=== PATIENT | female | born 1975 | race Caucasian/White ===

== ENCOUNTER 2017-01-09 12:05 | Emergency (ER) | payer SELFPAY ==
[~2017-01-09] VITALS: Ht 165.1 cm; Wt 75.0 kg
[2017-01-09 12:27] LABS: GLUCOSE,POINT OF CARE 260 MG/DL (70-110)
[2017-01-09] MEDS ORDERED: INSNOV SQ (12:32)
[2017-01-09] MEDS ORDERED: SIMV5TAB6 PO (12:32)
[2017-01-09] MEDS ORDERED: ASPI81 PO (12:32)
[2017-01-09] MEDS ORDERED: INSLAN SQ (12:32)
[2017-01-09] MEDS ORDERED: GLIP5 PO (12:32)
[2017-01-09 13:25] LABS: BASOPHILS % (AUTO) 0.4 % (0.0-2.0); EOSINOPHILS % (AUTO) 0.7 % (1.0-6.0); HEMATOCRIT 46.1 % (36-46); HEMOGLOBIN 15.3 g/dL (12.0-16.0); LYMPHOCYTES # (AUTO) 1.9 K/uL (1.0-4.8); LYMPHOCYTES % (AUTO) 27.9 % (22.0-44.0); MEAN CORPUSCULAR HEMOGLOBIN 29.8 pg (26.0-34.0); MEAN CORPUSCULAR HGB CONC 33.2 G/dL (31.0-37.0); MEAN CORPUSCULAR VOLUME 90 fL (80-100); MONOCYTES # (AUTO) 0.4 K/uL (0.1-1.0); NEUTROPHILS # (AUTO) 4.4 K/uL (1.8-7.7); PLATELET COUNT (AUTO) 125 K/uL (150-450); RED BLOOD CELL COUNT(AUTO) 5.15 MIL/uL (4.00-5.20); RED CELL DISTRIBUTION WIDTH 13.3 % (11.5-14.5); WHITE BLOOD COUNT (AUTO) 6.7 K/uL (4.5-11.0)
[2017-01-09 13:41] LABS: ANION GAP 12 mmol/L (8-16); CALCIUM, TOTAL 7.8 mg/dL (8.8-10.5); CARBON DIOXIDE 24 mmol/L (22-29); CHLORIDE 100 mmol/L (98-107); CREATININE 0.69 mg/dL (0.60-1.30); GLOMERULAR FILTR. RATE CALC > 60 mL/min (>60); POTASSIUM 3.8 mmol/L (3.5-5.1); SODIUM SERUM 136 mmol/L (136-145); UREA NITROGEN, BLOOD 16 mg/dL (7-18)
[2017-01-09 13:44] LABS: ALANINE AMINOTRANSFERASE 38 U/L (12-78); ALBUMIN 3.4 g/dL (3.4-5.0); ASPARTATE AMINOTRANSFERASE 23 U/L (15-37); BILIRUBIN,TOTAL 1.2 mg/dL (0.1-1.0); TOTAL PROTEIN, SERUM 7.6 g/dL (6.4-8.2)
[2017-01-09] MEDS ORDERED: SODIUM CHLORIDE 0.9% 1,000 ML IV ONE (13:45)
[2017-01-09] MEDS ORDERED: ONDANSETRON HCL 4 MG/2 ML VIAL IVP ONE (13:45)
[2017-01-09] MEDS ORDERED: PANTOPRAZOLE SODIUM 40 MG/VIAL IVP ONE (13:45)
[2017-01-09 13:50] LABS: B-TYPE NATRIURETIC PEPTIDE 7 pg/mL (0-100)
[2017-01-09 13:52] LABS: APPEARANCE,URINE CLEAR (CLEAR); GLUCOSE, URINE (UA) >=1000 mg/dL (NEGATIVE); KETONES,URINE NEGATIVE (NEGATIVE); LEUKOCYTE ESTERASE ,URINE NEGATIVE (NEGATIVE); OCCULT BLOOD,URINE NEGATIVE (NEGATIVE); PROTEIN,URINE NEGATIVE (NEGATIVE)
[2017-01-09 13:54] LABS: ADD UA MICROSCOPIC YES
[2017-01-09 13:56] LABS: RBC,URINE None Seen /HPF (0-2)
[2017-01-09 13:57] LABS: SQUAMOUS EPITHELIAL CELL,UR Moderate /LPF (None Seen); WBC,URINE None Seen /HPF (0-5)
[2017-01-09] MEDS ORDERED: METOCLOPRAMIDE HCL 5 MG/ML 2 ML VIAL IVP ONE (14:15)
[2017-01-09] MEDS ORDERED: MORPHINE SULFATE 4 MG/ML SYRINGE IVP ONE (14:15)
[2017-01-09 15:00] VITALS: BP 122/63
== END 2017-01-09 15:02 | disposition home or self-care (01) ==
LOC: EMS 12:07
DX: K21.9 Gastro-esophageal reflux disease without esophagitis (principal); F12.10 Cannabis abuse, uncomplicated; E11.43 Type 2 diabetes mellitus with diabetic autonomic (poly)neuropathy; K31.84 Gastroparesis; F14.10 Cocaine abuse, uncomplicated; J45.909 Unspecified asthma, uncomplicated; E78.00 Pure hypercholesterolemia, unspecified; Z79.82 Long term (current) use of aspirin; Z79.4 Long term (current) use of insulin; Z88.2 Allergy status to sulfonamides; Z88.6 Allergy status to analgesic agent
CPT/HCPCS: 36415; 71010; 80053; 80307; 81001; 82962; 83880; 84484; 85025; 93005; 96361; 96374; 96375; 99285; C9113; J2270; J2405; J2765

== ENCOUNTER 2017-02-16 14:53 | Emergency (ER) | payer MEDICAID ==
[~2017-02-16] VITALS: Ht 165.1 cm; Wt 85.0 kg
[~2017-02-16 14:53] MED LIST: ASPI81 PO; GLIP5 PO; INSLAN SQ; INSNOV SQ; SIMV5TAB6 PO
[2017-02-16] MEDS ORDERED: PRED10 PO (15:00)
[2017-02-16 15:02] LABS: GLUCOSE,POINT OF CARE 409 MG/DL (70-110)
[2017-02-16] MEDS ORDERED: SODIUM CHLORIDE 0.9% 1,000 ML IV ONE (15:15)
[2017-02-16] MEDS ORDERED: INSULIN REGULAR, HUMAN 100 UNITS/ML IVP ONE (15:15)
[2017-02-16 15:28] LABS: BASOPHILS % (AUTO) 0.5 % (0.0-2.0); EOSINOPHILS % (AUTO) 1.6 % (1.0-6.0); HEMATOCRIT 45.8 % (36-46); HEMOGLOBIN 14.9 g/dL (12.0-16.0); LYMPHOCYTES % (AUTO) 28.2 % (22.0-44.0); MEAN CORPUSCULAR HEMOGLOBIN 29.7 pg (26.0-34.0); MEAN CORPUSCULAR HGB CONC 32.4 G/dL (31.0-37.0); MEAN CORPUSCULAR VOLUME 92 fL (80-100); MONOCYTES # (AUTO) 0.6 K/uL (0.1-1.0); MONOCYTES % (AUTO) 8.3 % (2.0-9.0); NEUTROPHILS # (AUTO) 4.4 K/uL (1.8-7.7); NEUTROPHILS % (AUTO) 61.4 % (40.0-70.0); PLATELET COUNT (AUTO) 124 K/uL (150-450); RED BLOOD CELL COUNT(AUTO) 5.01 MIL/uL (4.00-5.20); RED CELL DISTRIBUTION WIDTH 14.3 % (11.5-14.5); WHITE BLOOD COUNT (AUTO) 7.2 K/uL (4.5-11.0)
[2017-02-16 16:27] LABS: ALANINE AMINOTRANSFERASE 38 U/L (12-78); ALBUMIN 3.3 g/dL (3.4-5.0); ANION GAP 12 mmol/L (8-16); ASPARTATE AMINOTRANSFERASE 17 U/L (15-37); BILIRUBIN,TOTAL 0.5 mg/dL (0.1-1.0); CALCIUM, TOTAL 8.4 mg/dL (8.8-10.5); CARBON DIOXIDE 23 mmol/L (22-29); CHLORIDE 99 mmol/L (98-107); GLOMERULAR FILTR. RATE CALC > 60 mL/min (>60); POTASSIUM 4.1 mmol/L (3.5-5.1); SODIUM SERUM 134 mmol/L (136-145); TOTAL PROTEIN, SERUM 7.3 g/dL (6.4-8.2); UREA NITROGEN, BLOOD 15 mg/dL (7-18)
[2017-02-16 16:31] LABS: APPEARANCE,URINE CLEAR (CLEAR); GLUCOSE, URINE (UA) >=1000 mg/dL (NEGATIVE); KETONES,URINE NEGATIVE (NEGATIVE); LEUKOCYTE ESTERASE ,URINE NEGATIVE (NEGATIVE); OCCULT BLOOD,URINE NEGATIVE (NEGATIVE); PROTEIN,URINE NEGATIVE (NEGATIVE)
[2017-02-16 16:32] LABS: ADD UA MICROSCOPIC YES
[2017-02-16 16:34] LABS: RBC,URINE None Seen /HPF (0-2); SQUAMOUS EPITHELIAL CELL,UR Few /LPF (None Seen); WBC,URINE 0-2 /HPF (0-5)
[2017-02-16 17:27] LABS: GLUCOSE,POINT OF CARE 158 MG/DL (70-110)
[2017-02-16] MEDS ORDERED: POVIDONE-IODINE 10% 15 ML SOLUTION UD TP ONE (17:30)
[2017-02-16] MEDS ORDERED: CefTRIAXone 1 GM/DEXTROSE 50 ML IV ONE (17:30)
[2017-02-16] MEDS ORDERED: LIDOCAINE HCL BUFFERED 1% 20 ML VIAL INJ ONE (17:30)
[2017-02-16] MEDS ORDERED: HYDROCODONE/ACETAMINOPHEN 5-325 MG TABLET PO ONE (18:30)
[2017-02-16 18:58] VITALS: BP 129/77
== END 2017-02-16 19:00 | disposition home or self-care (01) ==
LOC: EMS 14:54
DX: L02.511 Cutaneous abscess of right hand (principal); E11.65 Type 2 diabetes mellitus with hyperglycemia; J45.909 Unspecified asthma, uncomplicated; E78.00 Pure hypercholesterolemia, unspecified; Z91.19 Patient's noncompliance with other medical treatment and regimen; Z79.4 Long term (current) use of insulin; Z79.82 Long term (current) use of aspirin; Z88.6 Allergy status to analgesic agent; Z88.2 Allergy status to sulfonamides
CPT/HCPCS: 10060; 36415; 80053; 81001; 82962; 84703; 85025; 96361; 96365; 96375; 99285; J0696; J1815; J3490; J7030

== ENCOUNTER 2017-05-06 19:34 | Emergency (ER) | payer MEDICAID, OTHER ==
[~2017-05-06] VITALS: Ht 165.1 cm; Wt 90.0 kg
[~2017-05-06 19:34] MED LIST changes: +PRED10 PO
[2017-05-06 19:48] VITALS: BP 118/88
[2017-05-06 20:01] LABS: GLUCOSE,POINT OF CARE 389 MG/DL (70-110)
[2017-05-06] MEDS ORDERED: HYDROCODONE/ACETAMINOPHEN 5-325 MG TABLET PO ONE (22:30)
== END 2017-05-06 23:08 | disposition home or self-care (01) ==
LOC: EMS 19:37
DX: S46.912A Strain of unspecified muscle, fascia and tendon at shoulder and upper arm level, left arm, initial encounter (principal); E11.9 Type 2 diabetes mellitus without complications; E78.00 Pure hypercholesterolemia, unspecified; J45.909 Unspecified asthma, uncomplicated; Z79.4 Long term (current) use of insulin; Z88.8 Allergy status to other drugs, medicaments and biological substances; Z88.1 Allergy status to other antibiotic agents; W01.0XXA Fall on same level from slipping, tripping and stumbling without subsequent striking against object, initial encounter; Y93.89 Activity, other specified; Y92.89 Other specified places as the place of occurrence of the external cause; Y99.8 Other external cause status
CPT/HCPCS: 29240; 82962; 99284

== ENCOUNTER 2023-05-30 17:54 | Emergency (ER) | payer OTHER ==
[~2023-05-30] VITALS: Ht 165.1 cm; Wt 68.2 kg
[~2023-05-30 17:54] MED LIST changes: +ASPI-1450 PO; -ASPI81 PO; -GLIP5 PO; +GLIP5TAB12 PO; -PRED10 PO; +SIMV5TAB59 PO; -SIMV5TAB6 PO
[2023-05-30 19:50] VITALS: TEMP 98.9
[2023-05-30 20:56] LABS: BASOPHILS % (AUTO) 0.4 % (0.0-2.0); EOSINOPHILS % (AUTO) 1.5 % (1.0-6.0); HEMATOCRIT 30.7 % (36-46); HEMOGLOBIN 9.2 g/dL (12.0-16.0); LYMPHOCYTES # (AUTO) 1.8 K/uL (1.0-4.8); LYMPHOCYTES % (AUTO) 23.7 % (22.0-44.0); MEAN CORPUSCULAR HEMOGLOBIN 19.7 pg (26.0-34.0); MEAN CORPUSCULAR VOLUME 66 fL (80-100); MONOCYTES # (AUTO) 0.6 K/uL (0.1-1.0); MONOCYTES % (AUTO) 8.3 % (2.0-9.0); NEUTROPHILS # (AUTO) 5.1 K/uL (1.8-7.7); NEUTROPHILS % (AUTO) 66.1 % (40.0-70.0); PLATELET COUNT (AUTO) 196 K/uL (150-450); RED BLOOD CELL COUNT(AUTO) 4.66 MIL/uL (4.00-5.20); RED CELL DISTRIBUTION WIDTH 17.6 % (11.5-14.5)
[2023-05-30 21:17] LABS: APPEARANCE,URINE CLEAR (CLEAR); BILIRUBIN,URINE NEGATIVE (NEGATIVE); GLUCOSE, URINE (UA) TRACE mg/dL (NEGATIVE); KETONES,URINE NEGATIVE (NEGATIVE); LEUKOCYTE ESTERASE ,URINE NEGATIVE (NEGATIVE); NITRATE,URINE NEGATIVE (NEGATIVE); OCCULT BLOOD,URINE NEGATIVE (NEGATIVE); PH,URINE 7.5 (5.0-8.0); PROTEIN,URINE NEGATIVE (NEGATIVE); SPECIFIC GRAVITIY, URINE 1.006 (1.003-1.030); UROBILINOGEN,URINE <=1.0 mg/dL (<=1.0)
[2023-05-30 21:23] LABS: ANION GAP 8 mmol/L (8-16); CALCIUM, TOTAL 8.6 mg/dL (8.8-10.5); CARBON DIOXIDE 30 mmol/L (22-29); CHLORIDE 101 mmol/L (98-107); GLOMERULAR FILTR. RATE CALC > 60 mL/min (>60); GLUCOSE,RANDOM 144 mg/dL (70-110); SODIUM SERUM 139 mmol/L (136-145)
[2023-05-30 21:34] LABS: ALANINE AMINOTRANSFERASE 17 U/L (12-78); ALBUMIN 2.8 g/dL (3.4-5.0); ALKALINE PHOSPHATASE 95 U/L (46-116); ASPARTATE AMINOTRANSFERASE 11 U/L (15-37); BILIRUBIN,TOTAL 0.3 mg/dL (0.1-1.0); HCG,QUANTITATIVE < 1 mIU/mL (0-6); LIPASE 31 U/L (16-77)
[2023-05-30] MEDS ORDERED: ONDANSETRON HCL 4 MG/2 ML VIAL IVP ONE (22:30)
[2023-05-30] MEDS ORDERED: SODIUM CHLORIDE 0.9% 1,000 ML IV ONE (22:30)
[2023-05-30] MEDS ORDERED: FentaNYL CITRATE PF 100 MCG/2 ML VIAL IVP ONE (22:30)
[2023-05-31] MEDS ORDERED: DOCUSATE SODIUM 100 MG CAPSULE PO ONE (05:45)
[2023-05-31 06:57] VITALS: BP 122/54; PULSE 70; RESP 15
== END 2023-05-31 07:20 | disposition home or self-care (01) ==
LOC: EMS 17:54
DX: R10.31 Right lower quadrant pain (principal); K59.00 Constipation, unspecified; J45.909 Unspecified asthma, uncomplicated; E11.9 Type 2 diabetes mellitus without complications; E78.00 Pure hypercholesterolemia, unspecified; F15.90 Other stimulant use, unspecified, uncomplicated; Z88.2 Allergy status to sulfonamides; Z88.8 Allergy status to other drugs, medicaments and biological substances
CPT/HCPCS: 99285; 74176; 96374; 96361; 96375; 80053; 81003; 83690; 84702; 85025; 36415; J3010; J2405; J7030

== ENCOUNTER 2025-05-18 17:56 | Inpatient (IN) | payer MEDICAID, OTHER ==
[~2025-05-18] VITALS: Ht 165.1 cm; Wt 72.6 kg
[~2025-05-18 17:56] MED LIST changes: -GLIP5TAB12 PO; +GLIP5TAB16 PO
[2025-05-18] MEDS ORDERED: ZOLPIDEM TARTRATE 10 MG TABLET PO PRN (19:00)
[2025-05-18 22:28] VITALS: BP 111/81; PULSE 81; RESP 17; TEMP 97.3; O2SAT 98
[2025-05-18] MEDS: PNEUMOCOCCAL VACCINE POLYVALENT 0.5 ML SYRINGE [PPSV23] IM. ONE (23:45)
[2025-05-19 07:15] LABS: GLUCOMETER DEV NAME(LOC) BV3N.2; GLUCOSE,POINT OF CARE 163 MG/DL (70-110)
[2025-05-19 08:13] VITALS: BP 115/75; PULSE 85; RESP 16; TEMP 97.9; O2SAT 99
[2025-05-19 08:16] LABS: PLATELET COUNT (AUTO) 166 K/uL (150-450); RED BLOOD CELL COUNT(AUTO) 5.52 MIL/uL (4.00-5.20); RED CELL DISTRIBUTION WIDTH 17.5 % (11.5-14.5); WHITE BLOOD COUNT (AUTO) 7.1 K/uL (4.5-11.0)
[2025-05-19 08:40] LABS: ASPARTATE AMINOTRANSFERASE 19 U/L (15-37); CALCIUM, TOTAL 8.3 mg/dL (8.8-10.5); CHOL/HDL RATIO 3.0 (3.9-5.7); CREATININE 0.52 mg/dL (0.60-1.30); GLOMERULAR FILTR. RATE CALC > 60 mL/min (>60); GLUCOSE,RANDOM 158 mg/dL (70-110); HCG,QUANTITATIVE 2 mIU/mL (0-6); LDL CHOL (CALC.) 77 mg/dL (0-130); SODIUM SERUM 139 mmol/L (136-145); TOTAL PROTEIN, SERUM 7.3 g/dL (6.4-8.2); UREA NITROGEN, BLOOD 11 mg/dL (7-18)
[2025-05-19] MEDS ORDERED: ALBUTEROL SULFATE HFA 90 MCG/PUFF 8 GM INHALER IH PRN (09:30)
[2025-05-19] MEDS ORDERED: ONDANSETRON 4 MG TABLET PO PRN (09:30)
[2025-05-19] MEDS ORDERED: DOCUSATE SODIUM 100 MG CAPSULE PO PRN (09:30)
[2025-05-19] MEDS ORDERED: NICOTINE 14 MG/24 HOUR PATCH TD PRN (09:30)
[2025-05-19] MEDS ORDERED: GuaiFENesin/D-METHORPHAN [SUGAR-FREE] 200-20MG/10 ML SYRUP UDCUP PO PRN (09:30)
[2025-05-19] MEDS ORDERED: PETROLATUM,WHITE 28 GM JELLY TP PRN (09:30)
[2025-05-19] MEDS ORDERED: LOPERAMIDE HCL 2 MG CAPSULE PO PRN (09:30)
[2025-05-19] MEDS ORDERED: DEXTROSE 50%-WATER 25 GM/50 ML SYRINGE IVP PRN (09:30)
[2025-05-19 09:33] LABS: RBC MORPHOLOGY COMMENT ABNORMAL RBC MORPH
[2025-05-19 11:20] LABS: GLUCOMETER DEV NAME(LOC) BV3N.2; GLUCOSE,POINT OF CARE 207 MG/DL (70-110)
[2025-05-19] MEDS: INSULIN LISPRO 100 UNITS/ML SQ PRN (11:48)
[2025-05-19 11:56] VITALS: RESP 16
[2025-05-19] MEDS: IBUPROFEN 400 MG TABLET PO PRN (11:56)
[2025-05-19 12:56] VITALS: RESP 18
[2025-05-19 17:26] LABS: GLUCOMETER DEV NAME(LOC) BV3N.2; GLUCOSE,POINT OF CARE 190 MG/DL (70-110)
[2025-05-19] MEDS: SIMVASTATIN 10 MG TABLET PO SCH (20:27)
[2025-05-19 20:56] LABS: GLUCOMETER DEV NAME(LOC) BV3N.2; GLUCOSE,POINT OF CARE 142 MG/DL (70-110)
[2025-05-19 22:26] VITALS: BP 114/60; PULSE 76; RESP 17; TEMP 97.2; O2SAT 94
[2025-05-20] MEDS: ACETAMINOPHEN 325 MG TABLET PO PRN (01:12)
[2025-05-20] MEDS: MAG HYDROX/ALUMINUM HYD/SIMETH ES 30 ML SUSPENSION UDCUP PO PRN (01:13)
[2025-05-20 07:05] LABS: GLUCOMETER DEV NAME(LOC) BV3N.2; GLUCOSE,POINT OF CARE 189 MG/DL (70-110)
[2025-05-20 08:28] VITALS: BP 138/74; PULSE 74; RESP 16; TEMP 97.3; O2SAT 98
[2025-05-20] MEDS: ASPIRIN 81 MG CHEWABLE TABLET PO SCH (08:47)
[2025-05-20] MEDS: BuPROPion HCL XL 150 MG ER TABLET PO SCH (08:47)
[2025-05-20 09:19] LABS: APPEARANCE,URINE CLEAR (CLEAR); GLUCOSE, URINE (UA) 300-500 mg/dL (NEGATIVE); LEUKOCYTE ESTERASE ,URINE LARGE (NEGATIVE); NITRATE,URINE NEGATIVE (NEGATIVE); OCCULT BLOOD,URINE NEGATIVE (NEGATIVE); PH,URINE DRUG SCREEN 6.5 (5.0-8.0); SPECIFIC GRAVITIY, URINE 1.021 (1.003-1.030)
[2025-05-20 09:38] LABS: CHOL/HDL RATIO 2.9 (3.9-5.7); LDL CHOL (CALC.) 77.0 mg/dL (0-130)
[2025-05-20 09:42] LABS: ALCOHOL, URINE DRUG SCREEN NEGATIVE (NEGATIVE); AMPHET/METH SCREEN,URINE POSITIVE (NEGATIVE); BARBITURATE SCREEN, URINE NEGATIVE (NEGATIVE); CANNABINOID SCREEN,URINE NEGATIVE (NEGATIVE); COCAINE SCREEN,URINE NEGATIVE (NEGATIVE); METHADONE SCREEN, URINE NEGATIVE (NEGATIVE)
[2025-05-20 10:07] LABS: SQUAMOUS EPITHELIAL CELL,UR Few /LPF (None Seen)
[2025-05-20 12:31] LABS: GLUCOMETER DEV NAME(LOC) BV3N.2; GLUCOSE,POINT OF CARE 151 MG/DL (70-110)
[2025-05-20 17:25] LABS: GLUCOMETER DEV NAME(LOC) BV3N.2; GLUCOSE,POINT OF CARE 183 MG/DL (70-110)
[2025-05-20 20:33] VITALS: BP 108/79; PULSE 78; RESP 16; TEMP 97.3; O2SAT 98
[2025-05-20 22:25] LABS: GLUCOMETER DEV NAME(LOC) BV3N.2; GLUCOSE,POINT OF CARE 108 MG/DL (70-110)
[2025-05-21 07:11] LABS: GLUCOMETER DEV NAME(LOC) BV3N.2; GLUCOSE,POINT OF CARE 156 MG/DL (70-110)
[2025-05-21 08:20] VITALS: BP 101/64; PULSE 80; RESP 16; TEMP 97.7; O2SAT 99
[2025-05-21] MEDS: MAGNESIUM HYDROXIDE SUSPENSION 30 ML UDCUP PO PRN (11:21)
[2025-05-21 12:16] LABS: GLUCOMETER DEV NAME(LOC) BV3N.2; GLUCOSE,POINT OF CARE 212 MG/DL (70-110)
[2025-05-21 17:15] LABS: GLUCOMETER DEV NAME(LOC) BV3N.2; GLUCOSE,POINT OF CARE 198 MG/DL (70-110)
[2025-05-21 20:28] VITALS: BP 107/69; PULSE 79; RESP 18; TEMP 97.7; O2SAT 97
[2025-05-21 22:41] LABS: GLUCOMETER DEV NAME(LOC) BV3N.2; GLUCOSE,POINT OF CARE 172 MG/DL (70-110)
[2025-05-22 06:21] LABS: GLUCOMETER DEV NAME(LOC) BV3N.2; GLUCOSE,POINT OF CARE 136 MG/DL (70-110)
[2025-05-22 08:26] VITALS: BP 96/68; PULSE 71; RESP 17; TEMP 97.3; O2SAT 100
[2025-05-22 12:20] LABS: GLUCOMETER DEV NAME(LOC) BV3N.2; GLUCOSE,POINT OF CARE 118 MG/DL (70-110)
[2025-05-22 17:11] LABS: GLUCOMETER DEV NAME(LOC) BV3N.2; GLUCOSE,POINT OF CARE 133 MG/DL (70-110)
[2025-05-23 06:40] LABS: GLUCOMETER DEV NAME(LOC) BV3N.2; GLUCOSE,POINT OF CARE 108 MG/DL (70-110)
[2025-05-23 08:36] VITALS: BP 112/64; PULSE 72; RESP 18; TEMP 97.5; O2SAT 100
[2025-05-23 13:50] LABS: GLUCOMETER DEV NAME(LOC) BV3N.2; GLUCOSE,POINT OF CARE 162 MG/DL (70-110)
[2025-05-23 17:55] LABS: GLUCOMETER DEV NAME(LOC) BV3N.2; GLUCOSE,POINT OF CARE 204 MG/DL (70-110)
[2025-05-23 20:28] VITALS: BP 112/70; PULSE 77; RESP 17; TEMP 98.2; O2SAT 98
[2025-05-23 22:06] LABS: GLUCOMETER DEV NAME(LOC) BV3N.2; GLUCOSE,POINT OF CARE 124 MG/DL (70-110)
[2025-05-24 06:35] LABS: GLUCOMETER DEV NAME(LOC) BV3N.2; GLUCOSE,POINT OF CARE 120 MG/DL (70-110)
[2025-05-24 08:32] VITALS: BP 105/60; PULSE 70; RESP 17; TEMP 97.7; O2SAT 98
[2025-05-24] MEDS ORDERED: GLUCAGON,HUMAN RECOMBINANT 1 MG VIAL ONE (11:44)
[2025-05-24] MEDS: GLUCAGON,HUMAN RECOMBINANT 1 MG VIAL IM ONE (11:57)
[2025-05-24] MEDS ORDERED: GLUCAGON,HUMAN RECOMBINANT 1 MG VIAL IM PRN (12:45)
[2025-05-24] MEDS ORDERED: INSULIN LISPRO 100 UNITS/ML SQ PRN (12:45)
[2025-05-24 13:05] LABS: GLUCOMETER DEV NAME(LOC) BV3N.2; GLUCOSE,POINT OF CARE 152 MG/DL (70-110)
[2025-05-24] MEDS: ONDANSETRON HCL 4 MG/2 ML VIAL IM PRN (13:10)
[2025-05-24 17:20] LABS: GLUCOMETER DEV NAME(LOC) BV3N.2; GLUCOSE,POINT OF CARE 95 MG/DL (70-110)
[2025-05-24 20:24] VITALS: BP 124/80; PULSE 76; RESP 14; TEMP 97.3; O2SAT 91
[2025-05-25] VITALS (7 sets, daily range): BP systolic 99–133; BP diastolic 62–80; PULSE 75–90; RESP 16–18; TEMP 97.1–97.7; O2SAT 100
[2025-05-25 01:26] LABS: GLUCOMETER DEV NAME(LOC) BV3N.2; GLUCOSE,POINT OF CARE 128 MG/DL (70-110)
[2025-05-25 06:36] LABS: GLUCOMETER DEV NAME(LOC) BV3N.2; GLUCOSE,POINT OF CARE 94 MG/DL (70-110)
[2025-05-25 08:19] LABS: CALCIUM, TOTAL 8.8 mg/dL (8.8-10.5); CREATININE 0.72 mg/dL (0.60-1.30); GLOMERULAR FILTR. RATE CALC > 60 mL/min (>60); GLUCOSE,RANDOM 138 mg/dL (70-110); SODIUM SERUM 138 mmol/L (136-145); UREA NITROGEN, BLOOD 12 mg/dL (7-18)
[2025-05-25 08:19] LABS: APPEARANCE,URINE CLEAR (CLEAR); GLUCOSE, URINE (UA) NEGATIVE (NEGATIVE); LEUKOCYTE ESTERASE ,URINE MODERATE (NEGATIVE); NITRATE,URINE NEGATIVE (NEGATIVE); OCCULT BLOOD,URINE NEGATIVE (NEGATIVE); SPECIFIC GRAVITIY, URINE 1.017 (1.003-1.030)
[2025-05-25 08:34] LABS: HCG,QUAL URINE NEGATIVE (NEGATIVE)
[2025-05-25 08:35] LABS: SQUAMOUS EPITHELIAL CELL,UR Few /LPF (None Seen)
[2025-05-25 11:51] LABS: GLUCOMETER DEV NAME(LOC) BV3N.2; GLUCOSE,POINT OF CARE 132 MG/DL (70-110)
[2025-05-25 14:46] LABS: GLUCOMETER DEV NAME(LOC) BV3N.2; GLUCOSE,POINT OF CARE 194 MG/DL (70-110)
[2025-05-25 16:21] LABS: GLUCOMETER DEV NAME(LOC) BV3N.2; GLUCOSE,POINT OF CARE 176 MG/DL (70-110)
[2025-05-25 22:30] LABS: GLUCOMETER DEV NAME(LOC) BV3N.2; GLUCOSE,POINT OF CARE 155 MG/DL (70-110)
[2025-05-26 06:55] LABS: GLUCOMETER DEV NAME(LOC) BV3N.2; GLUCOSE,POINT OF CARE 117 MG/DL (70-110)
[2025-05-26 08:05] LABS: PLATELET COUNT (AUTO) 142 K/uL (150-450); RED BLOOD CELL COUNT(AUTO) 5.21 MIL/uL (4.00-5.20); RED CELL DISTRIBUTION WIDTH 17.8 % (11.5-14.5); WHITE BLOOD COUNT (AUTO) 6.1 K/uL (4.5-11.0)
[2025-05-26 08:14] VITALS: BP 100/60; PULSE 72; RESP 18; TEMP 97.7; O2SAT 99
[2025-05-26 08:21] LABS: CALCIUM, TOTAL 8.7 mg/dL (8.8-10.5); CREATININE 0.66 mg/dL (0.60-1.30); GLOMERULAR FILTR. RATE CALC > 60 mL/min (>60); GLUCOSE,RANDOM 118 mg/dL (70-110); SODIUM SERUM 140 mmol/L (136-145); UREA NITROGEN, BLOOD 14 mg/dL (7-18)
[2025-05-26 08:31] LABS: RBC MORPHOLOGY COMMENT ABNORMAL RBC MORPH
[2025-05-26 11:59] VITALS: RESP 18
[2025-05-26 12:00] VITALS: RESP 18
[2025-05-26 12:26] LABS: GLUCOMETER DEV NAME(LOC) BV3N.2; GLUCOSE,POINT OF CARE 128 MG/DL (70-110)
[2025-05-26 13:00] VITALS: RESP 17
[2025-05-26 17:01] LABS: GLUCOMETER DEV NAME(LOC) BV3N.2; GLUCOSE,POINT OF CARE 197 MG/DL (70-110)
[2025-05-26 20:49] VITALS: BP 105/62; PULSE 82; RESP 18; TEMP 98
[2025-05-26 21:06] LABS: GLUCOMETER DEV NAME(LOC) BV3N.2; GLUCOSE,POINT OF CARE 125 MG/DL (70-110)
[2025-05-27 06:35] LABS: GLUCOMETER DEV NAME(LOC) BV3N.2; GLUCOSE,POINT OF CARE 128 MG/DL (70-110)
[2025-05-27 12:01] LABS: GLUCOMETER DEV NAME(LOC) BV3N.2; GLUCOSE,POINT OF CARE 182 MG/DL (70-110)
[2025-05-27 12:29] VITALS: BP 95/60; PULSE 77; RESP 17; TEMP 98.1; O2SAT 100
[2025-05-27 16:50] LABS: GLUCOMETER DEV NAME(LOC) BV3N.2; GLUCOSE,POINT OF CARE 160 MG/DL (70-110)
[2025-05-27 20:29] VITALS: BP 103/60; PULSE 77; RESP 18; TEMP 98.1; O2SAT 95
[2025-05-27 21:20] LABS: GLUCOMETER DEV NAME(LOC) BV3N.2; GLUCOSE,POINT OF CARE 151 MG/DL (70-110)
[2025-05-27 22:51] VITALS: RESP 18
[2025-05-28 06:25] LABS: GLUCOMETER DEV NAME(LOC) BV3N.2; GLUCOSE,POINT OF CARE 136 MG/DL (70-110)
[2025-05-28 08:33] VITALS: BP 98/64; PULSE 86; RESP 17; TEMP 97.3; O2SAT 91
[2025-05-28 08:55] LABS: CHOL/HDL RATIO 3.0 (3.9-5.7); LDL CHOL (CALC.) 73.0 mg/dL (0-130)
[2025-05-28 09:20] VITALS: RESP 17
[2025-05-28 09:20] LABS: APPEARANCE,URINE TURBID (CLEAR); GLUCOSE, URINE (UA) 70-100 mg/dL (NEGATIVE); LEUKOCYTE ESTERASE ,URINE TRACE (NEGATIVE); NITRATE,URINE NEGATIVE (NEGATIVE); OCCULT BLOOD,URINE TRACE (NEGATIVE); SPECIFIC GRAVITIY, URINE 1.016 (1.003-1.030)
[2025-05-28 09:21] LABS: SULFOSALICYLIC ACID,URINE 2+ (Negative)
[2025-05-28 09:22] LABS: AMORPHOUS SEDIMENT,UR Many /LPF (None Seen); SQUAMOUS EPITHELIAL CELL,UR Few /LPF (None Seen)
[2025-05-28 10:20] VITALS: RESP 17
[2025-05-28 17:06] LABS: GLUCOMETER DEV NAME(LOC) BV3N.2; GLUCOSE,POINT OF CARE 206 MG/DL (70-110)
[2025-05-28 17:06] LABS: GLUCOMETER DEV NAME(LOC) BV3N.2; GLUCOSE,POINT OF CARE 210 MG/DL (70-110)
[2025-05-28 19:20] VITALS: BP 108/77; PULSE 87; RESP 17; TEMP 97.8
[2025-05-28 20:24] VITALS: RESP 17
[2025-05-28 20:25] LABS: GLUCOMETER DEV NAME(LOC) BV3N.2; GLUCOSE,POINT OF CARE 278 MG/DL (70-110)
[2025-05-28 20:41] VITALS: BP 103/69; PULSE 83; RESP 17; TEMP 97.7; O2SAT 100
[2025-05-29 06:28] VITALS: BP 108/72; PULSE 80; RESP 18; TEMP 97.6; O2SAT 98
[2025-05-29 09:07] VITALS: BP 105/63; PULSE 72; RESP 18; TEMP 97.3; O2SAT 98
[2025-05-29 11:16] LABS: GLUCOMETER DEV NAME(LOC) BV3N.2; GLUCOSE,POINT OF CARE 124 MG/DL (70-110)
[2025-05-29] MEDS: CEPHALEXIN MONOHYDRATE 500 MG CAPSULE PO SCH (12:32)
[2025-05-29 16:46] LABS: GLUCOMETER DEV NAME(LOC) BV3N.2; GLUCOSE,POINT OF CARE 149 MG/DL (70-110)
[2025-05-29 20:26] VITALS: BP 105/70; PULSE 74; RESP 15; TEMP 97.1; O2SAT 100
[2025-05-29 20:51] LABS: GLUCOMETER DEV NAME(LOC) BV3N.2; GLUCOSE,POINT OF CARE 132 MG/DL (70-110)
[2025-05-30 06:16] LABS: GLUCOMETER DEV NAME(LOC) BV3N.2; GLUCOSE,POINT OF CARE 90 MG/DL (70-110)
[2025-05-30] MEDS ORDERED: BUPR-50 PO (07:40)
[2025-05-30] MEDS ORDERED: ASPI81TA39 PO (07:43)
[2025-05-30] MEDS ORDERED: GLIP5TAB16 PO (07:43)
[2025-05-30] MEDS ORDERED: SIMV-259 PO (07:44)
[2025-05-30] MEDS ORDERED: CEPH-558 PO ×2 (07:45→07:51)
[2025-05-30 08:30] VITALS: BP 111/65; PULSE 74; RESP 18; TEMP 97.9; O2SAT 98
== END 2025-05-30 09:44 | disposition home or self-care (01) | DRG 751 ==
LOC: B3A 19:57
PROVIDERS: ADMIT Psychiatry & Neurology Child & Adolescent Psychiatry; ATTEND Psychiatry & Neurology Child & Adolescent Psychiatry
PROC: GZ56ZZZ Individual Psychotherapy, Supportive (ICD-10-PCS; 2025-05-19)
PROC: GZ58ZZZ Individual Psychotherapy, Cognitive-Behavioral (ICD-10-PCS; 2025-05-19)
PROC: GZ52ZZZ Individual Psychotherapy, Cognitive (ICD-10-PCS; 2025-05-20)
PROC: GZHZZZZ Group Psychotherapy (ICD-10-PCS; principal; 2025-05-24)
DX: F33.3 Major depressive disorder, recurrent, severe with psychotic symptoms (principal); E11.649 Type 2 diabetes mellitus with hypoglycemia without coma; R45.851 Suicidal ideations; E78.5 Hyperlipidemia, unspecified; G47.00 Insomnia, unspecified; F15.951 Other stimulant use, unspecified with stimulant-induced psychotic disorder with hallucinations; Z88.2 Allergy status to sulfonamides; Z79.4 Long term (current) use of insulin; Z79.84 Long term (current) use of oral hypoglycemic drugs; Z59.02 Unsheltered homelessness
CPT/HCPCS: 70450; 71101; 80048; 80053; 80061; 80307; 81001; 81002; 82962; 83036; 83690; 84436; 84443; 84702; 84703; 85025; 86592; 87086; J1610; J2405